=== PATIENT | female | born 1965 | race Caucasian/White ===

== ENCOUNTER 2017-03-17 23:07 | Emergency (ER) | payer OTHER ==
[~2017-03-17] VITALS: Ht 149.9 cm; Wt 50.8 kg
[2017-03-17 23:57] LABS: HEMATOCRIT 38.6 % (36.0-46.0); HEMOGLOBIN 13.1 G/DL (11.9-15.5); MCH 28.6 PG (29.0-34.0); MCHC 33.9 G/DL (30.0-36.0); MCV 84.3 FL (83-99); PLATELET COUNT 264 K/uL (156-360); RBC DIS.WIDTH-CV 13.2 % (11.8-14.6); RBC DIS.WIDTH-SD 40.5 % (39-53); RED BLOOD COUNT 4.58 M/uL (3.80-5.20); WHITE BLOOD COUNT 9.6 K/uL (4.1-10.2)
[2017-03-18 00:05] LABS: ALBUMIN 4.5 g/dL (3.2-4.8); CHLORIDE 107 mEq/L (99-109); POTASSIUM 3.6 mEq/L (3.7-5.4); SODIUM 142 mEq/L (136-147)
[2017-03-18 00:07] LABS: GLUCOSE 109 mg/dL (70-99)
[2017-03-18 00:08] LABS: TOTAL PROTEIN 7.2 g/dL (6.4-8.3)
[2017-03-18 00:09] LABS: TOTAL BILIRUBIN 0.4 mg/dL (0.0-1.0)
[2017-03-18 00:11] LABS: ALKALINE PHOSPHATASE 89 IU/L (3-129); CREATININE 0.7 mg/dL (0.6-1.3); GFR ESTIMATE (CALCULATED) > 59 mL/min/
[2017-03-18 00:12] LABS: UREA NITROGEN (BUN) 18 mg/dL (9-23)
[2017-03-18 00:13] LABS: AST (GOT) 17 IU/L (2-34)
[2017-03-18 00:14] LABS: ALT (GPT) 16 IU/L (3-49)
[2017-03-18 00:20] LABS: QUANTITATIVE HCG < 4.0 MIU/ML
[2017-03-18 00:37] LABS: APPEARANCE SL.HAZY ((CLEAR)); BILIRUBIN NEGATIVE; BLOOD NEGATIVE; COLOR YELLOW ((YELLOW)); GLUCOSE (STRIP) NEGATIVE; KETONES NEGATIVE; LEUKOCYTES LARGE; NITRITE NEGATIVE; PROTEIN (STRIP) NEGATIVE; SPECIFIC GRAVITY 1.027 (1.000-1.030); UROBILINOGEN 0.2 MG/DL (0.2-1.0)
[2017-03-18 00:45] LABS: BACTERIA RARE /HPF; CALCIUM OXALATE CRYSTALS 4+ /HPF; EPITHELIAL CELLS RARE /HPF; MUCUS TRACE /LPF; UCUL ADDED? YES; WHITE BLOOD CELLS 20-30 /HPF (0-5)
[2017-03-18] MEDS ORDERED: PERCOCET 5/31 TABLET PO (04:30)
[2017-03-18] MEDS ORDERED: ZOFRAN4 MG PO (04:30)
[2017-03-18 04:42] VITALS: BP 111/62
== END 2017-03-18 04:43 | disposition home or self-care (01) ==
LOC: EME 23:07
DX: K64.9 Unspecified hemorrhoids (principal); K92.1 Melena; K57.30 Diverticulosis of large intestine without perforation or abscess without bleeding; R39.15 Urgency of urination; Z97.5 Presence of (intrauterine) contraceptive device; Z87.891 Personal history of nicotine dependence
CPT/HCPCS: 74177; 80053; 81003; 84702; 85027; 87086; 99281; 99284; J3010; J7030